=== PATIENT | male | born 1980 | race Caucasian/White ===

== ENCOUNTER 2019-01-05 02:50 | Emergency (ER) | payer SELFPAY ==
[2019-01-05] MEDS ORDERED: KETOROLAC 30 MG/ML VIAL IVP ONE (03:06)
[2019-01-05] MEDS ORDERED: ONDANSETRON HCL IV 4 MG/2 ML VIAL IM ONE (03:10)
--- NOTE | 2019-01-05 03:12 | Emergency Department Record ---
History of Present Illness - General Chief Complaint: Abdominal Pain Stated Complaint: RLQ PAIN Time Seen by Provider: 01/05/19 03:06 Source: Patient Mode of Arrival: Ambulatory Limitations: No limitations - History of Present Illness Initial Comments: 38 yo male presents to ED for evaluation or right sided abdominal pain that radiates to the right groin/testicle region that began yesterday evening. Patient denies fevers, chills, or vomiting symptoms. Patient denies previous abdominal surgery, and denies health problems at his baseline. MD Complaint: Abdominal pain Onset/Timin -: Days(s) Location: R Flank Radiation: R flank Severity: Severe Severity scale (1-10): 9 Quality: Sharp, Stabbing Consistency: Constant, Getting worse Improves With: Nothing Worsens With: Nothing - Related Data Previous Rx's Medication Instructions Recorded Hydrocodone/Acetaminophen [[place] 1 each PO Q6H PRN #9 tablet 01/05/19 5-325 Tablet] Tamsulosin HCl [Flomax] 0.4 mg PO DAILY #15 cap.er.24h 01/05/19 Allergies Allergy/AdvReac Type Severity Reaction Status Date / Time No Known Drug Allergies Allergy Verified 01/05/19 02:54 Travel Screening - Travel/Exposure Within Last 30 Days Have you traveled within the last 30 days?: No Review of Systems Constitutional: Denies: Chills, Fever, Malaise, Night sweats Eyes: Denies: Eye discharge, Eye pain ENT: Denies: Congestion, Ear pain Respiratory: Denies: Cough, Dyspnea Cardiovascular: Denies: Chest pain, Dyspnea on exertion Endocrine: Denies: Fatigue, Heat or cold intolerance Gastrointestinal: Reports: Abdominal pain. Denies: Nausea, Vomiting Genitourinary: Reports: Testicular pain. Denies: Incontinence, Retention Musculoskeletal: Reports: Back pain. Denies: Arthralgia Skin: Denies: Bruising, Change in color Neurological: Denies: Abnormal gait, Confusion, Headache, Seizure Psychiatric: Denies: Anxiety Hematological/Lymphatic: Denies: Anemia, Blood Clots Past Medical History - SOCIAL HISTORY Smoking Status: Never smoker Alcohol Use: None Drug Use: None - RESPIRATORY Hx Respiratory Disorders: No - CARDIOVASCULAR Hx Cardio Disorders: No - NEURO Hx Neuro Disorders: No - GI Hx GI Disorders: No - Hx Genitourinary Disorders: No - ENDOCRINE Hx Endocrine Disorders: No - MUSCULOSKELETAL Hx Musculoskeletal Disorders: No - PSYCH Hx Psych Problems: No - HEMATOLOGY/ONCOLOGY Hx Hematology/Oncology Disorders: No Family Medical History Any Significant Family History?: No Physical Exam - General General Appearance: Alert, Oriented x3, Cooperative, Moderate distress (Appears uncomfortable on examination) Limitations: No limitations - Head Head exam: Atraumatic, Normocephalic, Normal inspection Head exam detail: negative: Abrasion, Contusion, Dominguez's sign, General tenderness, Hematoma, Laceration - Eye Eye exam: Normal appearance. negative: Conjunctival injection, Periorbital swelling, Periorbital tenderness, Scleral icterus - ENT Ear exam: negative: Auricular hematoma, Auricular trauma Nasal Exam: negative: Active bleeding, Discharge, Dried blood, Foreign body Mouth exam: negative: Drooling, Laceration, Muffled voice, Tongue elevation - Neck Neck exam: Normal inspection. negative: Meningismus, Tenderness - Respiratory Respiratory exam: Normal lung sounds bilaterally. negative: Rales, Respiratory distress, Rhonchi, Stridor - Cardiovascular Cardiovascular Exam: Regular rate, Normal rhythm, Normal heart sounds - GI/Abdominal GI/Abdominal exam: Soft, Other (Mild, diffuse TTP on examination without rebound , guarding.). negative: Rebound, Rigid - Rectal Rectal exam: Deferred - exam: Deferred - Extremities Extremities exam: Normal inspection. negative: Pedal edema, Tenderness - Back Back exam: Reports: CVA tenderness (R). Denies: CVA tenderness (L) - Neurological Neurological exam: Alert, Normal gait, Oriented X3 - Psychiatric Psychiatric exam: Normal affect, Normal mood - Skin Skin exam: Normal color. negative: Abrasion Type of lesion: negative: abrasion Course Vital Signs 01/05/19 03:03 Temperature 97.4 F L Pulse Rate [ 72 Pulse Ox Probe] Respiratory 20 Rate Blood Pressure 153/101 [Left Arm] Pulse Ox 100 - Reevaluation(s) Reevaluation #1: 01/05/19 04:01 Laboratory studies were reviewed and are grossly unremarkable for an acute process except for 21-35 RBCs in the urine. Patient was reassessed and reports that his pain symptoms are significantly improved/ Awaiting CT imaging report. Reevaluation #2: 01/05/19 04:43 CT Abdomen and Pelvis: 4 mm obstructing calculus distal right ureter with moderate right hydronephrosis Patient was updated on all results, pain is well controlled, and the patient appears stable for discharge at this time. Medical Decision Making - Lab Data Result diagrams: 01/05/19 03:05 01/05/19 03:05 Disposition Disposition: Discharge Clinical Impression: Kidney stone on right side Disposition: Home, Self-Care Condition: (2) Stable Instructions: Kidney Stones (ED) Additional Instructions: Return to ED if your symptoms worsen or if you have any concerns. Flomax and Ibuprofen as directed. Follow-up with Dr. Rouse in 3-5 days as directed. Prescriptions: Hydrocodone/Acetaminophen [[place] 5-325 Tablet] 1 each PO Q6H PRN #9 tablet PRN Reason: Pain - Moderate (5-7) Tamsulosin HCl [Flomax] 0.4 mg PO DAILY #15 cap.er.24h Referrals: LILLY ROUSE M.D. [MEDICAL DOCTOR] - Forms: Patient Portal Access Time of Disposition: 04:42 Quality - Quality Measures Quality Measures: N/A - Blood Pressure Screening Does Patient Have Any of the Following: No Blood Pressure Classification: Hypertensive Reading Systolic Measurement: 153 Diastolic Measurement: 101 Screening for High Blood Pressure: < First Hypertensive BP, F/U Documented > [ [id number]] First Hypertensive Follow-up Interventions: Referral to alternative/primary care provider.
[2019-01-05] MEDS ORDERED: 0.9 % SODIUM CHLORIDE 1000ML 1,000 ML IV SCH (03:15)
[2019-01-05 03:18] LABS: BASO % 0.6 % (0-6); EOS % 2.3 % (0-6); HEMATOCRIT 42.3 % (42.0-52.0); LYMPH % 27.5 % (16-45); MEAN CELL VOLUME 89.8 fl (81-97); MEAN CORPUSCULAR HEMOGLOBIN 29.7 pg (27-33); MEAN CORPUSCULAR HGB CONC 33.1 g/dl (32-36); MEAN PLATELET VOLUME 9.7 fl (7.4-10.4); MONO % 12.6 % (0-9); PLATELET COUNT 283 K/uL (130-400); RED BLOOD COUNT 4.71 M/uL (4.40-5.70); RED CELL DISTRIBUTION WIDTH 13.5 % (11.5-14.5); URINE APPEARANCE CLOUDY; URINE BILIRUBIN NEGATIVE (NEGATIVE); URINE BLOOD LARGE (NEGATIVE); URINE COLOR RED; URINE GLUCOSE (UA) NEGATIVE (NEGATIVE); URINE KETONE NEGATIVE (NEGATIVE); URINE LEUKOCYTE ESTERASE NEGATIVE (NEGATIVE); URINE NITRITE NEGATIVE (NEGATIVE); WHITE BLOOD COUNT W/O DIFF 6.6 K/uL (4.2-12.2)
[2019-01-05 03:20] LABS: URINE BACTERIA NONE SEEN; URINE EPITHELIAL CELLS 0 - 2 (FEW); URINE RBC 21 - 35 (NONE SEEN); URINE WBC 0 - 2 (0-2/hpf)
[2019-01-05 03:28] LABS: BILIRUBIN,TOTAL < 0.20 mg/dL (0.2-1.0); BLOOD UREA NITROGEN 17 mg/dL (6-20); EST GLOMERULAR FILTRATION RATE > 60 mL/min
[2019-01-05 03:29] LABS: TOTAL PROTEIN 6.6 g/dL (6.6-8.7)
[2019-01-05 03:31] LABS: GLUCOSE,RANDOM 153 mg/dL (74-109)
[2019-01-05 03:33] LABS: ALT/SGPT 41 U/L (<41)
[2019-01-05 03:34] LABS: ALB/GLOB RATIO 1.8 (1.1-1.8); ALBUMIN 4.2 g/dL (4.0-5.0); ALKALINE PHOSPHATASE 65 U/L (40-129); AST/SGOT 36 U/L (10.0-50.0)
[2019-01-05] MEDS ORDERED: TAMSULOSIN HCL 0.4 MG CAP.ER.24H PO ONE (04:47)
[2019-01-05] MEDS ORDERED: HYDROCODONE/APAP 5/325MG TABLET PO ONE (04:47)
--- NOTE | 2019-01-07 14:41 | CT SCAN REPORT ---
EXAM: CT OF THE ABDOMEN AND PELVIS WITHOUT CONTRAST HISTORY: RIGHT SIDED ABDOMINAL PAIN FOR ONE DAY. TECHNIQUE: CT of the abdomen and pelvis without contrast was obtained. Comparison: None. FINDINGS: The lung bases are clear. Unremarkable noncontrast appearance of the liver, spleen, adrenal glands, and pancreas. Mild right hydroureteronephrosis. 4 mm calculus at the right ureteral vesicular junction. An additional 2 mm calculus is seen within the right kidney. No left renal calculi or hydronephrosis. The urinary bladder is nondistended, no appreciable abnormalities. No focal colonic thickening or inflammatory change. Normal appendix. The stomach and small bowel are nondilated. No free air or free fluid. Mild calcification of the aortoiliac arterial access without aneurysmal dilation. Disk degeneration at L5-S1 with height loss and bulge. IMPRESSION: OBSTRUCTING 4 MM CALCULUS AT THE RIGHT URETERAL VESICULAR JUNCTION RESULTING IN MILD HYDRONEPHROSIS. AN ADDITIONAL RIGHT INTRARENAL 2 MM CALCULUS IS NOTED. JOB NUMBER: [id number] MTDD
== END 2019-01-05 05:00 | disposition home or self-care (01) ==
LOC: ER 02:50
DX: N13.2 Hydronephrosis with renal and ureteral calculous obstruction (principal); R11.0 Nausea
CPT/HCPCS: 99284 ×2; 96374; 96375; 96361; 85025; 80053; 81001; 74176; J1885; J2405; J7030